=== PATIENT | female | born 1980 | race Caucasian/White ===

== ENCOUNTER 2020-03-30 13:33 | Emergency (ER) | payer OTHER ==
[~2020-03-30] VITALS: Ht 167.6 cm; Wt 56.8 kg
[2020-03-30] MEDS ORDERED: birth control (14:03)
[2020-03-30 15:15] VITALS: BP 147/87
== END 2020-03-30 14:30 | disposition home or self-care (01) ==
LOC: FSED 14:30
DX: S80.01XA Contusion of right knee, initial encounter (principal); W19.XXXA Unspecified fall, initial encounter; Y93.89 Activity, other specified
CPT/HCPCS: 99283